=== PATIENT | female | born 1980 | race Caucasian/White ===

== ENCOUNTER → 2017-03-24 | Outpatient (CLI) | payer OTHER ==
--- NOTE | 2017-03-24 13:46 | RAD ---
Thyroid ultrasound, 03/24/2017: History: Hyperthyroidism The right lobe of the gland measures 4.4 x 1.4 x 1.7 cm while left lobe of the gland measures 3.3 x 1.4 x 1.2 cm. The echo pattern in both lobes of the gland is mildly heterogeneous. A small 6 mm oval-shaped nodule is present in the medial aspect of the right lobe of the gland. It is isoechoic centrally with a mildly hypoechoic rim. No calcifications or highly suspicious features are seen. No other thyroid nodule is identified. IMPRESSION: 1. Single small nonspecific right thyroid nodule. 2. The thyroid ultrasound is otherwise unremarkable.
== END | disposition home or self-care (01) ==
LOC: US 12:56
DX: E05.90 Thyrotoxicosis, unspecified without thyrotoxic crisis or storm (principal); E04.1 Nontoxic single thyroid nodule
CPT/HCPCS: 76536

== ENCOUNTER → 2017-12-09 | Outpatient (CLI) | payer OTHER | END | disposition home or self-care (01) | LOC: MRI 15:45 | DX: R51 Headache (principal) | CPT/HCPCS: 70551 ==

== ENCOUNTER → 2018-02-01 | Outpatient (CLI) | payer OTHER ==
[~2018-02-01] MED LIST: IOHEXOL 240 MG/ML 50ML VIAL. PO ONE; IOHEXOL 300 MG/ML 100ML VIAL. IV ONE; IOHEXOL 300 MG/ML 100ML VIAL. ONE
--- NOTE | 2018-02-01 14:19 | RAD ---
EXAM: Abdomen and pelvis CT with intravenous contrast. HISTORY: Pain. TECHNIQUE: Computed tomographic images of the abdomen and pelvis were obtained following the administration of 75 cc Omnipaque 300 intravenous contrast. Multiplanar reformatting was performed. *One or more of the following individualized dose reduction techniques were utilized for this examination: 1. Automated exposure control. 2. Adjustment of the mA and/or kV according to patient size. 3. Use of iterative reconstruction technique. COMPARISON: None. FINDINGS: Evaluation of the lower thorax is unremarkable. There is fatty infiltration of the liver along the falciform ligament. No suspicious hepatic lesion is seen. The gallbladder is surgically absent. There are postoperative changes consistent with gastric bypass surgery. The pancreas, spleen, adrenal glands and kidneys are unremarkable. There is no appendicitis. There is a short segment of enteroenteric intussusception within the left superior ventral abdomen. This is shortly distal to the gastric bypass gastroenteric anastomosis. This measures approximately 3 cm in length. There is no bowel obstruction. There is no free air. There is no lymphadenopathy. There is stranding within the left lower quadrant subcutaneous fat which may be due to edema or inflammation. There is a small amount of nonspecific pelvic free fluid. The absent. The ovaries are unremarkable. There is no suspicious osseous lesion. There is a small sclerotic lesion within T12, likely a bone island. IMPRESSION: 1. Short segment of enteroenteric intussusception within the superior left ventral abdomen slightly distal to a gastroenteric anastomosis. This measures approximately 3 cm in length. This can be an incidental transient finding. Follow-up with a small bowel follow-through exam can be performed to exclude persistent intussusception or an underlying mucosal lesion. 2. Slight nonspecific stranding within the subcutaneous fat of the inferior left frontal abdominal wall. Electronically signed by: Sarah Allen MD (02/01/2018 2:16 PM) [place] [id number]
== END | disposition home or self-care (01) ==
LOC: CT 12:41
DX: R10.32 Left lower quadrant pain (principal); Z98.890 Other specified postprocedural states
CPT/HCPCS: 74177; Q9966; Q9967

== ENCOUNTER → 2020-11-05 | Outpatient (CLI) | payer OTHER ==
--- NOTE | 2020-11-05 17:00 | KCIC ---
MRI STUDY OF THE LEFT KNEE WITHOUT CONTRAST Clinical indications: Anterior left knee pain. No known injury. Intermittent swelling. TECHNIQUE: Noncontrast MRI sequences of the left knee were performed in all 3 planes. FINDINGS: The anterior and posterior cruciate ligaments are intact. The quadriceps and patellar tendo ns are intact. Mild prepatellar soft tissue edema is seen without abnormal fluid distention of the pr epatellar bursa. No articular surface tear of the medial or lateral meniscus is seen. The medial arash ateral ligament is intact and no meniscocapsular separation is seen. The iliotibial band and lateral collateral ligament complex and popliteus tendon are intact. No posterior lateral corner injury is se en. No fracture or bone contusion or marrow infiltrative process is seen. Mild degenerative spurring of the medial and lateral femoral joint compartments is seen. The patella is normally aligned. There is moderate chondromalacia of the lateral facet near the apex of the patella. There is mild chondroma lacia of the trochlear groove. Motion artifact is apparent throughout the patellofemoral joint compar tment. No significant articular cartilage defect is seen otherwise. The medial and lateral retinacula r ligaments are intact. No distended Matthews's cyst is seen. No abnormal knee joint effusion is seen. N o loose body is seen. No muscle edema is seen. IMPRESSION: No ligament or tendon or meniscal tear. Mild degenerative spurring of the medial and lateral tibial femoral joint compartments. 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 Mild prepatellar soft tissue edema. Electronically signed by: Bharat Lopez MD (11/05/2020 4:57 PM) [place] [id number]
== END ==
LOC: KCIC MRI 14:51
PROVIDERS: ATTEND Physician Assistant
DX: M94.262 Chondromalacia, left knee (principal); M76.892 Other specified enthesopathies of left lower limb, excluding foot
CPT/HCPCS: 73721